=== PATIENT | male | born 1935 | race Caucasian/White ===

== ENCOUNTER 2019-09-26 09:01 | Inpatient (IN) | payer OTHER, SELFPAY ==
[2019-09-18 08:53] VITALS: BMI 25.1
[2019-09-26] VITALS (19 sets, daily range): BP systolic 82–125; BP diastolic 35–79; PULSE 56–95; RESP 7–18; TEMP 36.1–36.6; O2SAT 91–98; BMI 25.8
--- NOTE | 2019-09-26 | DI.RAD.S_ITS ---
PROCEDURE: XR LUMBAR SPINE 2-3V INDICATIONS: L4-5 TLIF TECHNIQUE: 2 views of the lumbar spine were acquired. COMPARISON: [facility], MR, MR LUMBAR SPINE WITHOUT CONTRAST, 12/07/2018, 13:19. [facility], CR, XR LUMBAR SPINE WITH FLEXION EXTENSION 5 VIEWS, 12/04/2018, 9:55. FINDINGS: 2 intraoperative fluoroscopy images demonstrate discectomy and posterior fusion. There is a disc prosthesis in the interspace of L4-L5. IMPRESSION: Discectomy and posterior fusion at L4-L5. Dictated by: Shilpa Pride M.D. on 09/26/2019 at 14:54 Approved by: Shilpa Pride M.D. on 09/26/2019 at 14:56
[2019-09-26] MEDS: ACETAMINOPHEN 325 MG TABLET 975 MG PO (09:55)
--- NOTE | 2019-09-26 10:32 | PM.PREOP ---
Pre-operative Note Interval Note History & Physical reviewed/Exam performed by Physician: Yes Changes to H&P: No
[2019-09-26] MEDS: CEFAZOLIN 2 GM/100 ML FROZ.PIGGY IV (11:05)
--- NOTE | 2019-09-26 11:13 | SUR.OPER ---
Prone on spine table, head in foam head support, padded chest and pelvic supports, gel pad at knees, lower legs supported by pillows; nipples, genitalia and toes free of pressure, arms secured on foam padded arm boards at <90 degrees abduction. Tape over blanket at thigh secured to table.
[2019-09-26] MEDS: BUPIVACAINE LIPOSOME 266 MG/20 ML VIAL INJ (12:11)
[2019-09-26] MEDS: BUPIVACAINE 0.25% W/ EPI (PF) 10 ML VIAL 20 ML INJ (12:12)
--- NOTE | 2019-09-26 13:28 | P.OP_ITS ---
Operative Date/Time/Diagnoses Date of procedure: 09/26/19 Time of procedure: 11:29 Pre-op diagnosis: 1. L4-5 spondylolisthesis 2. L4-5 spinal stenosis with neurogenic claudication Post-op diagnosis: same Procedure & Clinicians Procedure: 1. L4-5 Postero-lateral and posterior interbody fusion 2. L4-5 interbody cage placement. 3. L4-5 decompressive laminectomy with bilateral facetecomies 4. L4-5 Posterior non-segmental instrumentation 5. [place] of bone marrow from iliac crest 6. Utilization of microsurgical technique and operating microscope Same procedure as scheduled: Yes Indications: Patient has been having chronic back pain and worsening lumbar radiculopathy and neurogenic claudication. Patient failed multiple conservative management with worsening pain weakness and numbness in her lower extremity. Patient has been having difficulty performing activity of daily living. After discussing risks benefits of treatment options, patient elected proceed with surgery. Surgeon: Ryan Corea Nuclear Auxiliary Operator: Joan Decker'Brien Click Yes if Unassisted: No Anesthesia Type: General Operative Notes Closure Type: primary Specimen(s): none sent Prosthetic devices, grafts, tissues, transplants, or devices: Globus revolve, Rise cage Estimated Blood Loss (mL): 50 Blood products transfused: none Procedure in detail: Patient was seen in the preoperative area. Risks and benefits of the surgery was discussed with the patient. Informed consent was obtained from the patient and placed in the chart. Surgical site was marked. Patient was taken to the operative room. General anesthesia was administered. Prophylactic antibiotic was given to the patient less than 30 min before the incision was made. Patient was placed into a prone position on the Yohannes table. Patient's back was then prepped and draped in the sterile fashion. Time-o ut was performed at this time. Using AP and lateral C-arm imaging the interval between L4-5 was identified and marked on patient's back. A 2 inch incision 2 in from midline was made on the right side first. The fascia was incised in line with skin incision. Globus MARS retractors was placed inside the incision and docked onto the L4 lamina. Using microsurgical technique and operating microscope, a L4 laminectomy and L4- 5 facetectomy was performed using a Kerrison rongeur. Patient was found have severe central and neural foramen stenosis which was fully decompressed after decompression was completed at L4-5 level. The disc space at L4-5 was identified. And a total diskectomy was performed at L4-5 level. The endplates were decorticated using a rasp and shaver. The total diskectomy and decortication was performed at L4-5 level in order to to accomplish a L4-5 fusion. The local bone from the laminectomy and facetectomy was saved for local bone grafting. After the total diskectomy and decortication was completed, Bio4 bone graft material was combined with local bone that was harvested earlier. At this time, a separate skin is incision was made over the iliac crest. A Jamshidi needle was inserted into the iliac crest through a separate skin incision. 5 cc of bone marrow aspiration was obtained through the separate skin incision using a Jamshidi needle from the iliac crest. The bone marrow aspiration was combined with local bone and the Bio4 bone grafting material. The bone grafting material was placed into the L4-5 interbody space along with a expandable cage. The cage was expanded to its maximum height using the torque limiting screwdriver. At this time a mirror image incision was made on the left side. The fascia was incised in line with the skin incision. Globus MARS retractor was inserted and docked onto the L4-5 posterolateral gutter. Using the power drill, posterior- lateral decortication was performed at L4-5 level until bleeding cortical bone was identified. The remaining bone grafting material was placed into the L4-5 posterior lateral gutter he order to accomplish posterolateral fusion at the L4- 5 level. Using the double C-arm technique, pedicle screws were placed into the L4-5 pedicles bilaterally. This was done by placing the Jamshidi needle into the pedicles, then placing the guidewires over the Jamshidi needle, and finally placing the cannulated screws over the guidewires bilaterally. After the pedicle screws were placed, 2 titanium rods was locked into the heads of the pedicle screws using locking caps and torque limiting screwdriver. After all the hardware was placed, and confirmed with AP and lateral C-arm imaging, the wound was then irrigated with sterile normal saline and packed with Ray-Jennifer gauze for 3 min to accomplish hemostasis. After the gauze was removed the deep fascia was closed with #1 Vicryl suture. The subcutaneous layer was closed with 2-0 Vicryl. The skin was closed with skin beckie. Patient tolerated the procedure well. There were no complications. Complications: none Post-operative Condition: stable Disposition: PACU Plan for aftercare: Admit to inpatient hospital
[2019-09-26] MEDS: hydrOXYzine 50 MG/ML INJ 25 MG IM (14:26)
[2019-09-26] MEDS: HYDROMORPHONE 2 MG INJ IV ×2 (14:26→14:40)
--- NOTE | 2019-09-26 14:54 | SUR.PHASEI ---
Medicated patient for c/o 5/10 Pain. Denies nausea. Tolerating po.
--- NOTE | 2019-09-26 15:56 | PC.ADMIT ---
[id number] [facility] Admission Note: The patient,Diego Clements,84 y/o, was given written information regarding hospital policies, unit procedures and contact persons. Patient's smoking status: Former smoker. Vital Signs - 8 hr 09/26/19 09:31 09/26/19 13:39 09/26/19 13:43 Temperature 97 F L 97.5 F L Pulse Rate 56 L 87 83 Respiratory Rate 15 7 L 7 L Blood Pressure 125/72 85/57 L 98/58 L Pulse Oximetry 97 93 92 09/26/19 13:49 09/26/19 13:54 09/26/19 13:58 Temperature Pulse Rate 81 78 78 Respiratory Rate 7 L 7 L 7 L Blood Pressure 91/55 L 91/58 L 95/60 Pulse Oximetry 91 92 92 09/26/19 14:04 09/26/19 14:14 09/26/19 14:29 Temperature 97.3 F L Pulse Rate 91 H 84 72 Respiratory Rate 18 12 17 Blood Pressure 94/59 L 89/52 L 107/65 Pulse Oximetry 96 97 96 09/26/19 14:39 09/26/19 14:49 Temperature Pulse Rate 70 82 Respiratory Rate 17 12 Blood Pressure 97/63 94/62 Pulse Oximetry 97 98 Patient up from Pacu, awake and alert. A little hard of hearing but hearing aid placed in Rt ear. C/O 9/10 pain but easily falls asleep. was recently medicated in pacu. Drsg with small amount of drainage.
[2019-09-26] MEDS: HYDROCODONE/ACET 5/325 TABLET 2 TAB PO ×2 (16:47→20:21)
[2019-09-26] MEDS: SODIUM CHLORIDE 0.9% 1,000 ML 100 ML IV (16:47)
[2019-09-26] MEDS: CLINDAMYCIN 600 MG/50 ML PIGGYBACK 50 MG IV (19:15)
[2019-09-26] MEDS: DOCUSATE 100 MG CAPSULE PO (20:21)
[2019-09-26] MEDS: SENNOSIDES 8.6 MG TABLET 17.2 MG PO (20:21)
[2019-09-26] MEDS: SODIUM CHLORIDE 0.9% 1,000 ML 1000 ML IV (22:33)
--- NOTE | 2019-09-26 22:43 | PC.NURSE ---
syncopal episode approx 2227 pt was escorted to BR by this RN and PUMP OPERATOR. PUMP OPERATOR remained with pt as pt wanted to attempt to void to urinal. PUMP OPERATOR notified this RN via [employer] approx 2229 to return to room as pt was feeling dizzy and PUMP OPERATOR pushed call button on bathroom wall. PUMP OPERATOR was with pt and he was seated on the toilet. pt states is feeling dizzy. This RN rolled recliner chair into bathroom for pt to sit in to roll back to bed. Immediately upon pt sitting in recliner he slumped over and was non responsive to voice/sternal rub. PUMP OPERATOR Thao had entered room in response to call light and was present in room when pt slumped over and was instructed to and and immediately activated the code blue. Staff responded instantly including coordinator Yessica, float RN Roger, and CONY Alcantara. pt then was awakening to voice approx 2231 and states remembered being dizzy. Pt supine position in recliner with BP 82/35 with HR 65. NC placed on 2L with sats upper 90s. pt pale in color. NS fluid bolus started per CONY Alcantara. tele placed and is SR. VS to cycle Q15 min. Pt remains in reclined position in chair and states is sleepy but arouses easily. probable vasovagal response with attempt to urinate.
--- NOTE | 2019-09-26 23:59 | PC.NURSE ---
Addendum entered by Davis Bell R.N. 09/27/19 00:24: 0000: Assisted to sitting position in recliner: pt tolerated well without dizziness. Standing with one person assist, was able to walk to bed and lay down. B/P 104/58. Pt denies pain and continues to deny dizziness. Resting in bed. IV in place in rt wrist with NS infusing at 100cc/hr. Dressing to back intact, with small amt shadow drainage. Original Note: Powerhouse Operator Note: 2350: Awake, resting in recliner chair. Pt wants to get back into bed, agrees to wait until blood pressure is a little higher. He denies dizziness. Weber catheter placed @2340 by Chuck Vick RN due to bladder scan showing 511ml and no void since surgery.
--- NOTE | 2019-09-27 01:03 | PM.EVENT ---
Event Note Date Patient Seen: 09/26/19 Time Patient Seen: 22:30 Event Note: RAPID RESPONSE: Was called to patient's bedside related to an acute change in patient's status, near syncopal episode postoperative lumbar spine surgery. Mr. Noe Rm is an 87-year-old male who was a former pipe smoker with history significant for arthritis, enlarged prostate, osteoarthritis, psoriasis and L4-5 spondylolisthesis with neurogenic claudication was admitted to the hospital for spinal surgery. The patient underwent an uncomplicated L4-5 Postero-lateral and posterior interbody fusion with instrumentation by Dr. Corea under general anesthetic. The patient was admitted to the acute medical floor following recovery with minimal pain. The patient was assisted up to go to the bathroom to void when he became profoundly dizzy and weak experiencing a near syncopal episode. Patient was assisted to a chair and reclined. The patient did not lose consciousness remain conversant but demonstrated slight diaphoresis, pallor, blunted responses. His last pain medication was Vicodin approximately 1-1/2 hours prior per nursing staff. Per the medical record the patient does not have a cardiac history and denies chest pain or palpitations, reports no shortness of breath, no nausea or vomiting. Smoking: Patient is a former smoker Alcohol: Consumes 2 drinks per day Caffeine: Consumes over 6 cups of coffee daily Substance use: Patient denies Vital signs: In recliner chair 22:32 heart rate 65 blood pressure 82/35 respiratory rate 14 SpO2 96 22:37 heart rate 69 blood pressure 78/35 respiratory rate 14 SpO2 96 22:59 heart rate 65 blood pressure 90/54 respiratory rate 14 SpO2 96 Exam: GENERAL APPEARANCE: well developed, well nourished, awake but slow to respond. HEENT: Atraumatic, PERRLA. NECK/THYROID: neck supple, flat jugular veins in reclining position, trachea midline. SKIN: Pale, warm, slightly diaphoretic. HEART: regular rate and rhythm, on initial exam no palpable radial pulse, palpable radial pulse is following reclining. LUNGS: clear to auscultation bilaterally, no coarseness crackles or wheezing, no cough present CHEST: Symmetrical movement, no accessory muscle use. ABDOMEN: Soft, no distention, no abdominal tenderness. EXTREMITIES: moves all extremities. NEUROLOGIC: AAO x3, Initial GCS is 14 quickly improving to 15. No complaints of paresthesias numbness or tingling No laboratory data available postoperatively. Assessment and plan: This is an 84-year-old male patient who is postoperative lumbar spinal fusion who experienced a near syncopal episode while getting to void. 1. Vasovagal episode, acute -patient with near syncopal episode upon standing to void. -oxygen nasal cannula 2 liters/minute applied transiently and discontinued. -patient with rapid improvement and mentation with reclining to briskly responsive. -initiated fluid bolus normal saline 500 cc, modest improvement in vital signs will repeat 500 bolus for 1000 cc total. -patient with blood pressure return to stated normal of 104/58 at which time the patient is able to stand and transfer back to bed with staff assistance. -medicine service will be available as needed. Patient stabilized with fluid bolus returning back to baseline with no further complaints dizziness. He never experienced chest pain or palpitations and is monitored on telemetry.
[2019-09-27] MEDS: CLINDAMYCIN 600 MG/50 ML PIGGYBACK 50 MG IV (03:51)
[2019-09-27 05:15] VITALS: BP 105/63; PULSE 69; RESP 16; TEMP 36.7; O2SAT 98
[2019-09-27] MEDS: SODIUM CHLORIDE 0.9% 1,000 ML 100 ML IV (05:16)
[2019-09-27 07:14] VITALS: O2SAT 98
[2019-09-27 08:15] VITALS: BP 122/48; PULSE 67; RESP 20; TEMP 36.5; O2SAT 97
[2019-09-27] MEDS: DOCUSATE 100 MG CAPSULE PO (08:50)
--- NOTE | 2019-09-27 08:59 | CM.DANOTE ---
Addendum entered by Charlotte Bautista LPN 09/27/19 12:52: OT note is now in and reveals pt did very well in this session. OT recommendation is for home with a FWW. She states his is going to get one. Likely home today....will check in tomorrow if pt is still here follow accordingly. Ortho PA has placed a d/c order but only IF pt is cleared for same by the therapy team. Addendum entered by Charlotte Bautista LPN 09/27/19 09:21: Met now with pt, introduced self and role. Pt is found sitting up in bedside chair, alert and looking comfortable. He confirms his plan for home with his 's supportive assist. Has been using a FWW in the hospital. Does not have one at home. I have not yet had a first PT session so I really won't know what I need until then. Will be following. Original Note: Discharge Planning/Care Management DCP: assessment: Case received, EMR reviewed. Pt is an 84 year old male who admitted yesterday for a planned spinal surgery: lumbar region Surgeon: Dr. Corea. PCP: Naida Sanches Payer: [facility]. Admission status: in review: per UR TOMY Ariza. OT and PT are ordered but have not yet worked with pt. Pt did speak with the pre-op nurse/RN CAB on 09/18 and identified his post hospital plan as a d/c to home setting with 's supportive assist. P: check in with pt. Discuss in Team Rounds. Follow for d/c issues and options as care unfolds. CM Discharge Assessment Start: 09/27/19 08:58 Freq: Status: Active Protocol: Document 09/27/19 08:58 ITV (Rec: 09/27/19 08:59 ITV [id number]) Discharge Planning Assessment Advance Directives? Yes Advance Directives on File No: Pt unsure of where copy is History Provided By Medical Record Prior Living Arrangements House Household Members spouse Is patient alert and oriented? Yes: [facility] Review Status In Process Pre-Anesthesia Assessment Start: 09/18/19 08:53 Freq: Status: Complete Protocol: Document 09/18/19 08:53 CAB (Rec: 09/18/19 09:49 CAB [id number]) Pre-Anesthesia Assessment Preferred Name Paulino Patient Information Reviewed Via Phone Assessment Assessment Completed With Patient Diagnostic Results BMP/CMP,CBC,EKG Comment Outside labs/EKG scanned to record Primary Care Provider Naida Sanches Seen Specialist in Last 12 Months Yes Specialist Seen Orthopedist Primary Language Senegalese Bridge Mechanic Required No Height 175.26 cm Weight 77.111 kg Body Mass Index (BMI) 25.1 Hearing Ability Hard of Hearing,Use of Hearing Aid,Deaf Visual Assist Magnifying Glass Dentition Type Teeth, Natural Present Barriers to Learning Auditory Comment Hearing aid to right ear, deaf in left ear Hx Anesthesia Reactions No Hx Family Anesthesia Reaction No Hx Malignant Hyperthermia No Hx Blood Transfusions Yes: s/p prostatectomy 2004 Hx Blood Transfusion Reaction No Anesthesia Review Requested No alcohol intake current alcohol intake frequency 0-2 drinks per day Smoking Status Former smoker Tobacco type cigarettes,pipe how long ago did patient quit smoking Quit 1978 Substance Use Type does not use Pain Present Pain Reported Musculoskeletal Symptoms Abnormal Gait,Back Pain, Difficulty Walking,Numbness, Radiating Pain into Limb History of Falling (Recent or History of Yes ) Patient is completely paralyzed or No completely immobile Mental Status Oriented to own ability Is patient on oxygen? No Does patient have SOSA/SOB No Hx Sleep Apnea No Currently Taking a Beta Julee No Can You Climb a Flight of Stairs Without Yes SOB Hx Chest Pain No Hx SOB No Hx Syncope or Dizziness No Anti-Coagulant Therapy No Has a Garment Tag Stringer No Cardiac Testing No Hx Pacemaker/ICD No Pacemaker Rep Required? No Cardiac Clearance Received Not Applicable Diet Type At Home Regular dysphagia No Bladder Pattern Frequency Urinary Catheter Present No Hx Urinary Self Catheterization No Diabetes No Hx Drug Resistant Organism No Presence of External or Internal Medical Yes: Left hip, right knee Devices hardware Have you traveled outside the [facility] in the last 30 days? Marital Status Lives With spouse Prior Living Arrangements House Number of Floors (Floors) Two Floors Support System Spouse Does the Patient Have Assistance After Yes Surgery Patient Discharge Plan Description Return Home Comment Pt advised overnight length of stay per surgeon Feels Safe in Current Environment Yes Been Physically Hurt or Threatened By a No Person in Current Environment Do you have thoughts of harming yourself None or others? Are you currently considering suicide? No Do you have a plan to hurt yourself or No Plan others? Do You Have Any Spiritual Beliefs That No May Affect Your HC Choices? Do You Have Any Cultural Practices That No May Affect Your HC Choices? Who Can We Speak to About Patient's Care Family, friends Identifying Code for Release of Patient Declines to issue Information Health Care Proxy/Next of Kin Leanne Cantu () Health Care Proxy Emergency Contact Name Leanne Cantu () Emergency Contact Advance Directives? Yes Advance Directives on File No: Pt unsure of where copy is Requested Patient Bring Advanced No Directives DOS Power of Metal Cans Supervisor Yes Power of Metal Cans Supervisor Name Leanne Cantu () Power of Metal Cans Supervisor PAC Instructions Durable medical equipment, Medications to take/avoid, Nasal antibiotic,No ETOH/ petroleum product on skin DOS, NPO,Post-op transportation,Pre -surgical wash,Sensory aids, Sturdy shoes/comfortable clothes,Do not bring valuables and remove jewelry
--- NOTE | 2019-09-27 10:05 | PC.NURSE ---
Addendum entered by Diana Hernandez R.N. 09/27/19 15:36: Lower back dressing changed per order prior to discharge. Dressing removed, Incisions well approximated X2, beckie intact to right incision, medicated gauze came off with dressing removal. Left incision remains covered with medicated gauze. Area cleansed with NS, COversite dressing applied. Pt tolerated well. Extra coversite dressing given to pt. Discharge summary packet given to pt and his . Pt able to have a chance to pre-read discharge material and this software writer also reviewed. No voiced concerns. Pt left unit via wheelchair at 1504 with INSTRUCTIONAL RESOURCE TEACHER escort. Pt's present to drive pt home. Prescriptions given to pt. Addendum entered by Diana Hernandez R.N. 09/27/19 13:43: Pt voided X2 qs urine post urinary catheter removal. Pt states is wanting to go home. No further needs from PT at this time. Original Note: Day Shift- Pain controlled with prn Bicknell last evening, pt rates 3-4/10 pain on rest, slight increase with movement and pain settles once in a resting position. Pt did not want pre-medication prior to PT/OT session. Pt ambulated with SBA using walker from bed to recliner chair this Ma without difficulty. Able to sit himself up from side lying to sitting position. Asymptomatic. Urinary catheter removed at 0955 without difficulty. Lower back dressing intact with small amount of sang drainage shadowing. Plan to change prior to discharge. Pt aware that discharge depends on PT/OT sessions. 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 No other voiced concerns.
--- NOTE | 2019-09-27 11:23 | OT.IP.EVAL ---
Current Diagnoses Spondylolisthesis, lumbar region (09/26/19) Spinal stenosis, lumbar region with neurogenic claudication (09/26/19) Surgery Performed Operation Date: 09/26/19 11:15 Actual Procedures p L4-5 TLIF - Ryan Corea MD Past Medical History (Last Updated 09/18/19 @ 09:13 by Edna Beckwith, RN) Back pain (Acute) Neuropathy (Acute) Osteoarthritis (Acute) Seasonal allergies (Acute) Surgical History (Last Updated 09/18/19 @ 09:13 by Edna Beckwith RN) H/O vasectomy (Acute ~1971) History of tonsillectomy and adenoidectomy (Acute) History of total left hip arthroplasty (Acute 08/07/12) Hx of arthroscopy of right knee (Acute ~2013) Hx of bilateral cataract extraction (Acute) Hx of inguinal hernia repair (Acute) Hx of knee surgery (Acute ~1999) Hx of prostatectomy (Acute ~2004) Occupational Therapy Inpatient Evaluation/Re-Eval M1 PT/OT-IP Prior Functional Status Start: 09/27/19 11:23 Freq: NEEDED Status: Active Protocol: Document 09/27/19 11:24 CGR (Rec: 09/27/19 11:42 CGR [email or web address]) Medical Review Prior Functional Status Medical History Reviewed Yes Communication Effective verbal communication . Mobility and Gait Pt was IND prior to admission. Activities of Daily Living and IADL's Pt was IND prior to admission and does all of the cooking at home. Social History Household Members spouse Living Arrangements House Number of Floors (Floors) Two Floors Number of Stairs To Enter/Railing? 12 stairs down to master bedroom and bath with rail on L assending. No stairs to enter the home on the main level. Pt states he is able to stay on the main level in the guest room if needed. 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 Pt states no DME at home but partner is obtaining DME today. M2 OT-IP Current Condition Start: 09/27/19 11:23 Freq: Status: Active Protocol: Document 09/27/19 11:24 CGR (Rec: 09/27/19 11:42 CGR [email or web address]) Occupational Therapy Current Condition Current Condition Evaluation Date 09/27/19 Treatment Diagnosis l4-5 interbody fusion Diagnosis Onset Date 09/26/19 Post Operative Precautions Lumbar Precautions Log Roll,No Twisting,Limit Bending,Lifting Restriction of 10 lbs,Gait Belt above Incisional Area M3 OT- IP Subjective and Pain Start: 09/27/19 11:23 Freq: Status: Active Protocol: Document 09/27/19 11:24 CGR (Rec: 09/27/19 11:42 CGR [email or web address]) OT- Subjective Occupational Therapy Visit Type Type Initial Evaluation Visit Start Time 10:54 Visit Stop Time 11:23 Total Visit Minutes 29 Occupational Therapy Visit Comments Patient Comments I feel much better today. OT Pain Assessment Pain When Pain Assessed At Rest Pain Present Pain Present Pain Reported Location lower back Intensity 3 Scale Used Numeric (1 - 10) Management Techniques Timing of Activity with Medications M4 OT- IP ADL's Start: 09/27/19 11:23 Freq: Status: Active Protocol: Document 09/27/19 11:24 CGR (Rec: 09/27/19 11:42 CGR [email or web address]) OT [id number] Comments OT Self-Feeding Comments Not meal time OT ADL-Grooming General Evaluation Grooming Ability Independent Areas Needing Assistance Retrieving/Set-up of Grooming Items,Face Washing Comments OT Grooming Comments standing at sink OT ADL-Oral Care General Eval Oral Care Ability Independent Areas of Assistance Retrieving/Set-Up of Items Comments Oral Care Comments standing at sink OT ADL-Dressing General Eval Lower Body Dressing Ability Independent Areas Needing Assistance Underpants/Brief,Socks Comments OT Dressing Comments IND without AD. Able to maintain back precautions. OT ADL-Toileting General Evaluation Toileting Ability Independent Comments OT Toileting Comments educated on pericare s/p back sx and use of walker with standing urination. OT ADL-Bathing Comments OT Bathing Comments not performed but educated on need of shower chair and GB for safety. M5 OT- IP IADL's Start: 09/27/19 11:23 Freq: Status: Active Protocol: Document 09/27/19 11:24 CGR (Rec: 09/27/19 11:42 CGR [email or web address]) OT-Instrumental Activities of Daily Living Deficits IADL Deficits Identified No Deficits Home Safety Awareness Awareness of Need for Assistance at Home Good Awareness Ability to Problem Solve Emergency Able to Problem Solve Situations Medication Management Medication Management No Deficits Identified Money Management Money Management No Deficits Identified Meal Preparation Meal Preparation Caregiver Provides Assist Track Dresser Track Dresser Caregiver Provides Assist Driving Driving Comments Pt understand that he needs to refrain from driving till oked by his surgeon. M6 OT- IP Functional Cognition Start: 09/27/19 11:23 Freq: Status: Active Protocol: Document 09/27/19 11:24 CGR (Rec: 09/27/19 11:42 CGR [email or web address]) Cognitive Factors Limiting Selfcare Function Cognitive Ability Level of Alertness Alert Patient Orientation Name,Age,Birthday,Month,Date, Year,Day of Week,Place, Situation Attention Span Ability Capable of Focused Attention, Capable of Sustained Attention Ability to Follow Commands Able to Follow Multi-Step Commands Memory Description No Deficits Noted Safety Awareness No Deficits Noted Problem Solving Ability No deficits Noted Executive Function Ability No Deficits Noted Abstract Thinking Ability No Deficits Noted OT- Vision and Hearing OT- Hearing Assessment OT- Hearing Assessment Hearing Impaired,Use of Hearing Aids OT- Vision Assessment Visual Acuity WFL,Glasses For Reading Visual Attentiveness WFL Occular Pursuits WFL Visual Convergence WFL Visual [place] WFL M7 OT- IP Mobility and Balance Start: 09/27/19 11:23 Freq: Status: Active Protocol: Document 09/27/19 11:24 CGR (Rec: 09/27/19 11:42 CGR [email or web address]) OT- Bed Mobility Assessment Rolling Type of Rolling Log Rolling Level of Assistance Independent Supine to Sit Supine to Sit Assist Independent Sit to Supine Sit to Supine Assist Independent Scooting Scooting to Edge of Bed Independent OT-Transfer Assessment Sit to and From Stand Sit to and from Stand Independent Transfers Transfer Ability Independent Technique Transfer Destination Bed,Chair,Toilet Transfer Technique Stand Step Pivot Devices Transfer Assistive Devices Front Wheeled Walker Comments Mobility Comments Pt ambulated around the room with IND and use of front wheeled walker. OT- Balance Assessment Sitting Balance and Reactions Static Sitting Balance Ability Normal Dynamic Sitting Balance Ability Good M8 OT- IP Objective Assessments Start: 09/27/19 11:23 Freq: Status: Active Protocol: Document 09/27/19 11:24 CGR (Rec: 09/27/19 11:42 CGR [email or web address]) OT Gross Range of Motion Upper Extremity Range of Motion Assessment Within Functional Limits OT Strength Upper Extremity Strength Assessment Within Functional Limits Comments Strength Comments grossly 4+/5 OT- Coordination Assessment Upper Extremity Finger to Nose Test Within Functional Limits Finger Tapping Test Within Functional Limits OT-Muscle Tone Assessment Muscle Tone WNL Yes OT Sensation Assessment Edema Edema Absent M9 OT- IP Assessment and Plan Start: 09/27/19 11:23 Freq: Status: Active Protocol: Document 09/27/19 11:24 CGR (Rec: 09/27/19 11:42 CGR [email or web address]) OT Summary Assessment and Plan Potential Rehabilitation Potential Excellent Analytic Complexity at Evaluation Low Summary OT Impairments Pain Progress Towards Goals Safe For Discharge,Goals Met Assessment Summary Pt presents as a low complexity evaluation s/p back sx. Pt had syncope episode yesterday after sx but not displaying any signs of presyncope or syncope in todays session. Educated pt on home safety and back precautions. Pt states understanding and is able to move around the room with MOD I using the 2WW. No further OT needs. Frequency of Treatment Frequency Of Treatment Discharge Discharge Recommendations OT Discharge Recommendations Home with Assistance Home Equipment Needs Pt's partner to get equipment today.
--- NOTE | 2019-09-27 11:41 | PT.IIE ---
Current Diagnoses Spondylolisthesis, lumbar region (09/26/19) Spinal stenosis, lumbar region with neurogenic claudication (09/26/19) Surgery Performed Operation Date: 09/26/19 11:15 Actual Procedures p L4-5 TLIF - Ryan Corea MD Surgical History (Last Updated 09/18/19 @ 09:13 by Edna Beckwith, RN) H/O vasectomy (Acute ~1971) History of tonsillectomy and adenoidectomy (Acute) History of total left hip arthroplasty (Acute 08/07/12) Hx of arthroscopy of right knee (Acute ~2013) Hx of bilateral cataract extraction (Acute) Hx of inguinal hernia repair (Acute) Hx of knee surgery (Acute ~1999) Hx of prostatectomy (Acute ~2004) Medical History (Last Updated 09/18/19 @ 09:13 by Edna Beckwith RN) Back pain (Acute) Neuropathy (Acute) Osteoarthritis (Acute) Seasonal allergies (Acute) Physical Therapy Inpatient Evaluation/Re-Eval M1 PT/OT-IP Prior Functional Status Start: 09/27/19 11:23 Freq: NEEDED Status: Active Protocol: Document 09/27/19 11:24 CGR (Rec: 09/27/19 11:42 CGR [email or web address]) Medical Review Prior Functional Status Medical History Reviewed Yes Communication Effective verbal communication . Mobility and Gait Pt was IND prior to admission. Activities of Daily Living and IADL's Pt was IND prior to admission and does all of the cooking at home. Social History Household Members spouse Living Arrangements House Number of Floors (Floors) Two Floors Number of Stairs To Enter/Railing? 12 stairs down to master bedroom and bath with rail on L assending. No stairs to enter the home on the main level. Pt states he is able to stay on the main level in the guest room if needed. 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 Pt states no DME at home but partner is obtaining DME today. M1 PT/OT-IP Prior Functional Status Start: 09/27/19 13:17 Freq: NEEDED Status: Active Protocol: Document 09/27/19 11:41 AB (Rec: 09/27/19 13:25 AB [id number]) Medical Review Prior Functional Status Medical History Reviewed Yes Communication able to make needs known Mobility and Gait stated that he is independent with all mobilities and ambulation without AD Activities of Daily Living and IADL's per OT's note: Pt was IND prior to admission and does all of the cooking at home. Social History Household Members spouse Living Arrangements House Number of Floors (Floors) Two Floors Number of Stairs To Enter/Railing? has to no steps to enter but has 12 steps down to the basement bedroom with R rail descending Home Environment High Toilet,Walk in Shower Employment Status Retired Additional Social History Comment stated that his partner will acquire a FWW from the [facility] today M2 PT-IP Current Condition Start: 09/27/19 13:17 Freq: NEEDED Status: Active Protocol: Document 09/27/19 11:41 AB (Rec: 09/27/19 13:25 AB [id number]) Physical Therapy Current Condition Current Condition Evaluation Date 09/27/19 Treatment Diagnosis s/p L4-5 post. fusion/lami; difficulty in walking Onset Date 09/26/19 Precautions Lumbar Precautions Log Roll,No Twisting,Limit Bending,Lifting Restriction of 10 lbs,Gait Belt above Incisional Area M3 PT-IP Subjective Start: 09/27/19 13:17 Freq: NEEDED Status: Active Protocol: Document 09/27/19 11:41 AB (Rec: 09/27/19 13:25 AB [id number]) Subjective Physical Therapy Visit Type Type Initial Evaluation Visit Start Time 11:41 Visit Stop Time 12:15 Total Visit Minutes 34 Number of PAD ASSEMBLER Visits 0 Physical Therapy Visit Comments Patient Comments agreeable to do PT Therapy Pain Assessment Pain When Pain Assessed At Rest Pain Present Pain Present Pain Reported Location lower back Intensity 2 Scale Used Numeric (1 - 10) Pain Management Techniques Apply Cold,Modification of Treatment,Re-positioning M4 PT-IP Mobility and Gait Start: 09/27/19 13:17 Freq: NEEDED Status: Active Protocol: Document 09/27/19 11:41 AB (Rec: 09/27/19 13:25 AB [id number]) PT-Bed Mobility Assessment Rolling Type of Rolling Log Rolling Level of Assist Standby Assistance Supine to Sit Supine to Sit Standby Assistance Sit to Supine Sit to Supine Standby Assistance Scooting Scooting to Edge of Bed Standby Assistance PT-Transfer Assessment Sit to and From Stand Sit to and from Stand Standby Assistance Equipment Transfer Assistive Device Gait Belt,Front Wheeled Walker Orthotic/Prosthetic Devices or Brace: No Transfers Transfer Destination Bed,Chair Transfer Technique Stand Step Pivot Transfer Ability Level of Assist Standby Assistance Gait Assessment Gait Gait Assistance Required: Standby Assistance Distance (Feet) 150 Able to Maintain Weight Bearing Status Yes During Gait Assistive Devices Assistive Device Gait Belt,Front Wheeled Walker Orthotic/Prosthetic Devices or Brace: No Factors Limiting Gait Function Factors Limiting Gait Function Pain,Poor Balance,Poor Safety Awareness Comments Gait Comments ambualted in hallway using FWW ~ 150 ft x 2 SBA and cues for safety Stair Climbing Assessment Evaluation Level of Assist On Stairs Standby Assistance Devices Stair Climbing Assistive Devices Left Railing Technique/Endurance Stair Climbing Direction Ascend and Descend Stair Climbing Technique Step Over Step Number of Steps Climbed 3 Query Text: Stair Climbing Set # Repetitions (reps) 3 PT-Balance Assessment Sitting Balance and Reactions Static Sitting Balance Ability Normal Dynamic Sitting Balance Ability Good Standing Balance and Reactions Static Standing Balance Ability Good Dynamic Standing Balance Ability Fair Device Used FWW M5 PT-IP Objective Assessments Start: 09/27/19 13:17 Freq: NEEDED Status: Active Protocol: Document 09/27/19 11:41 AB (Rec: 09/27/19 13:25 AB [id number]) Orientation Orientation/Cognition Level of Alertness Alert Orientation Name,Age,Birthday,Month,Date, Year,Day of Week,Place, Situation Language Function Ability Hard of Hearing Memory Description No Deficits Noted Gross Range of Motion Lower Extremity ROM Assessment Within Functional Limits Strength Lower Extremity Strength Assessment Within Functional Limits Coordination Assessment Gross Coordination Gross Coordination WNL Sensation Assessment Sensation Gross Sensation WNL Muscle Tone Muscle Tone WNL Yes M6 PT-IP Treatment Start: 09/27/19 13:17 Freq: NEEDED Status: Active Protocol: Document 09/27/19 11:41 AB (Rec: 09/27/19 13:25 AB [id number]) Physical Therapy Treatment Education Education Provided Precautions,Weight Bearing Status,Post-Op Packet,Safety M7 PT-IP Assessment and Plan Start: 09/27/19 13:17 Freq: NEEDED Status: Active Protocol: Document 09/27/19 11:41 AB (Rec: 09/27/19 13:25 AB [id number]) PT Summary Assessment and Plan Potential Rehabilitation Potential Good Status of Condition at Evaluation Stable Summary Impairments Pain,ROM,Strength,Balance, Coordination,Bed Mobility, Transfers,Gait,Activity Tolerance Assessment Summary pt requiring SBA with mobility and plans to go home with his partner to assist him. pt stated that they will borrow a FWW from the [facility]. pt may go home when medically stable. Goals Bed Mobility Goal Independent Transfer Goal Independent,Front Wheeled Walker Gait Goal Independent,Front Wheel Walker Gait Distance 200 Other Goals up/down 12 steps L rail ascending mod I Days to Meet Goals 3 Frequency of Treatment Frequency Of Treatment Twice a Day Treatment Plan Physical Therapy Treatment Plan Bed Mobility Training,Transfer Training,Gait Training, Therapeutic Exercise,Balance Retraining,Post Op Education, Discharge Planning,Hot or Cold Pack,Neuromuscular Re-ed, Coordination Retraining,Manual Therapy Recommendations To Nursing Amount of Assist Needed Standby Assistance Discharge Recommendations PT Discharge Recommendations Home with Assistance Equipment Needed for Home Before FWW Discharge
--- NOTE | 2019-09-27 13:13 | PM.PN.1 ---
Subjective Subjective Date Patient Seen: 09/27/19 Interval history: Patient is POD #1 s/p L4-[address] Corea. Did have one episode overnight of near syncope that hospitalist felt was vasovagal. BP seems improved this morning following 1L bolus NS. Patient denies symptoms except complaining of some nausea, no vomiting. Discussed with patient that anti-nausea meds available, but he feels this is mild and does not want to take anything at this point. No shortness of breath, chest pain. Barbour catheter in place. Patient has history of prostatectomy but denies urinary retention. He has mobilized about the room with minimal difficulty. Exam Vital Signs (past 8 hours): - 09/27/19 05:15 09/27/19 07:14 09/27/19 08:15 Temperature 98.1 F 97.7 F Pulse Rate 69 67 Respiratory Rate 16 20 Blood Pressure 105/63 122/48 L Pulse Oximetry 98 98 97 Oxygen Delivery Method Room Air Oxygen Flow Rate 0 Narrative Exam Narrative: Pleasant 84 year old male resting comfortably in the chair. Alert and oriented in no acute distress. Dressing in place with small area of shadow drainage and small tear. 5/5 plantar flexion. Sensation intact to light touch. Palpable pedal pulse. Assessment & Plan Assessment & Plan narrative: Discontinue barbour today. New dressing applied. Patient will work with physical therapy today. Likely discharge to home later today pending PT eval and appropriate void. Prescription of [place] provided for postoperative pain upon discharge. Quality VTE Deep Vein Thrombosis/Pulmonary Embolism Present on Admission: No
[2019-09-27 13:32] LABS: Hematocrit 34.1 % (41-53); Hemoglobin 11.9 g/dL (13.5-17.5); Mean Corpuscular HGB Conc 34.9 % (30-36); Mean Corpuscular Hemoglobin 31.2 PG (26-34); Mean Corpuscular Volume 89.5 fL (80-100); Platelet Count 126 X10^3/uL (150-400); Red Cell Distribution Width 12.7 % (11.6-14.8); White Blood Cell Count 9.2 X10^3/uL (4.5-11.0)
[2019-09-27] MEDS: ACETAMINOPHEN 325 MG TABLET 650 MG PO (14:08)
== END 2019-09-27 15:04 | disposition home or self-care (01) | DRG 455 ==
PROVIDERS: Physician Assistant Surgical; Admitting Provider Orthopaedic Surgery Orthopaedic Surgery of the Spine; PCP Family Medicine; Visit Provider Orthopaedic Surgery Orthopaedic Surgery of the Spine
PROC: 0SG30AJ Fusion of Lumbosacral Joint with Interbody Fusion Device, Posterior Approach, Anterior Column, Open Approach (ICD-10-PCS; principal; 2019-09-26 11:15)
DX: M48.062 Spinal stenosis, lumbar region with neurogenic claudication (principal); M43.16 Spondylolisthesis, lumbar region; R55 Syncope and collapse; Z87.891 Personal history of nicotine dependence
CPT/HCPCS: 36415; 72100; 76000; 85027; 97161; 97165; 97535; C1776; C9290; J0330; J0690; J1100; J1170; J2250; J2405; J2704; J3010; J3410